=== PATIENT | female | born 1985 ===

== ENCOUNTER 2023-10-31 00:02 | Emergency (ER) | payer BC, MEDICAID ==
[2023-10-31 00:48] LABS: MEAN CORPUSCULAR HEMOGLOBIN 29.7 pg (27.0-32.0); MEAN CORPUSCULAR HGB CONC 30.4 g/dL (32.0-36.0); MEAN CORPUSCULAR VOLUME 97.9 fL (83.0-97.0); PLATELET COUNT,PLT 345 10^3/uL (150-400); RED BLOOD CELL COUNT 1.95 x10^6/uL (4.00-5.50); WHITE BLOOD CELL COUNT,WBC 13.4 10^3/uL (4.0-11.0)
[2023-10-31 00:55] LABS: HEMATOCRIT 19.1 % (37.0-47.0); HEMOGLOBIN 5.8 g/dL (12.0-16.0)
[2023-10-31 01:05] LABS: ALANINE AMINOTRANSFERASE,ALT 27 U/L (12-78); ALBUMIN 2.9 g/dL (3.4-5.0); ALKALINE PHOSPHATASE 59 U/L (46-116); ASPARTATE AMNIOTRANSFERASE,AST 15 U/L (15-37); BILIRUBIN TOTAL 0.2 mg/dL (0.0-1.0); BLOOD UREA NITROGEN,BUN 11 mg/dL (7-18); CALCIUM 8.9 mg/dL (8.4-10.1); CARBON DIOXIDE,CO2 24 mmol/L (21-32); CHLORIDE,CL 104 mEq/L (98-106); CREATININE 1.1 mg/dL (0.6-1.0); GLUCOSE RANDOM 141 mg/dL (75-99); POTASSIUM,K 3.5 mEq/L (3.5-5.0); PROTEIN TOTAL,TP 6.9 g/dL (6.4-8.2); SODIUM,NA 141 mEq/L (136-145)
[2023-10-31 01:06] LABS: ESTIMATED GFR 66 mL/min (>=60)
[2023-10-31 01:15] LABS: APPEARANCE,URINE TURBID (CLEAR); BACTERIA,URINE NOT SEEN /HPF (NOT SEEN); BILIRUBIN,URINE NEGATIVE (NEGATIVE); COLOR,URINE RED (YELLOW); GLUCOSE,URINE NEGATIVE (NEGATIVE); KETONES,URINE TRACE mg/dL (NEGATIVE); LEUKOCYTE ESTERASE,URINE NEGATIVE (NEGATIVE); NITRITE,URINE NEGATIVE (NEGATIVE); OCCULT BLOOD,URINE LARGE (NEGATIVE); PH,URINE 5.5 (4.5-8.0); PROTEIN,URINE >=300 mg/dL (NEGATIVE); RBC,URINE PACKED /HPF (0-5); SQUAMOUS EPITHELIAL CELLS,UR NOT SEEN /HPF (NOT SEEN); UROBILINOGEN,URINE 0.2 EU/dL (0.2-1.0); WBC,URINE NOT SEEN /HPF (0-5)
[2023-10-31 01:20] LABS: EOSINOPHILS PERCENT MAN 3 % (0-5); LYMPHOCYTES ABSOLUTE MAN 4.15 10^3/uL (1.00-4.80); LYMPHOCYTES PERCENT MAN 31 % (21-55); MONOCYTES ABSOLUTE MAN 0.94 10^3/uL (0.00-0.80); MONOCYTES PERCENT MAN 7 % (2-12); NEUTROPHILS ABSOLUTE MAN 7.91 10^3/uL (1.80-7.00); SEG NEUTROPHILS PERCENT MAN 59 % (35-85)
[2023-10-31] MEDS: Tranexamic Acid 1,000 MG in Sodium Chloride 0.9% 100 ML IV ONE (01:29)
[2023-10-31] MEDS: Sodium Chloride 0.9% 250 ML ONE (02:54)
[2023-10-31] MEDS: Sodium Chloride 0.9% 250 ML IV SCH (02:54)
== END 2023-10-31 03:30 ==
LOC: CC.ED 00:02
DX: N93.9 Abnormal uterine and vaginal bleeding, unspecified (principal); D50.0 Iron deficiency anemia secondary to blood loss (chronic)
CPT/HCPCS: 36415; 36430; 80053; 81001; 81025; 84484; 85025; 86850; 86900; 86901; 86920; 86922; 96374; 99285-25; J3490; J7050; P9016